=== PATIENT | female | born 2000 | race Hispanic/Latino ===

== ENCOUNTER 2020-06-14 04:14 | Emergency (ER) | payer BC ==
[~2020-06-14] VITALS: Ht 160 cm; Wt 61.7 kg
[2020-06-14] MEDS ORDERED: SODIUM CHLORIDE 0.9% 1000ML 1,000 ML IV STA (04:35)
[2020-06-14] MEDS ORDERED: FAMOTIDINE 20 MG/2 ML VIAL IV ONE ×2 (04:45→05:09)
[2020-06-14] MEDS ORDERED: PROMETHAZINE 25MG/ NS 50ML (IV) IV ONE (04:45)
[2020-06-14] MEDS ORDERED: KETOROLAC TROMETHAMINE 30 MG/ML VIAL IV ONE (04:45)
[2020-06-14] MEDS ORDERED: FAMOTIDINE20 MG PO (04:53)
[2020-06-14] MEDS ORDERED: ZOFRAN4 MG PO (04:53)
[2020-06-14] MEDS ORDERED: MAALOX MAXIMUM355 ML PO (04:53)
[2020-06-14] MEDS ORDERED: ACETAMINOPHEN500 MG PO (04:53)
[2020-06-14] MEDS ORDERED: SODIUM CHLORIDE 0.9% 50ML 50 ML ONE (05:07)
[2020-06-14] MEDS ORDERED: PROMETHAZINE HCL (IM) 25 MG/ML VIAL IM ONE (05:07)
[2020-06-14] MEDS ORDERED: KETOROLAC TROMETHAMINE 30 MG/ML VIAL ONE (05:07)
[2020-06-14] MEDS ORDERED: SODIUM CHLORIDE 0.9% 1000ML 1,000 ML ONE (05:09)
[2020-06-14 05:50] VITALS: BP 139/89
== END 2020-06-14 05:50 | disposition home or self-care (01) ==
LOC: FSED 04:35
DX: R11.2 Nausea with vomiting, unspecified (principal); K52.9 Noninfective gastroenteritis and colitis, unspecified; R10.9 Unspecified abdominal pain; R06.02 Shortness of breath; B34.9 Viral infection, unspecified; R51.9 Headache, unspecified; R01.1 Cardiac murmur, unspecified
CPT/HCPCS: 74176; 80048; 80076; 81003; 81025; 83880; 84484; 85025; 96374; 96376; 99284; J1885; J2550; J7030

== ENCOUNTER 2020-06-22 00:38 | Emergency (ER) | payer BC ==
[~2020-06-22] VITALS: Ht 160 cm; Wt 61.7 kg
[~2020-06-22 00:38] MED LIST: ACETAMINOPHEN500 MG PO; FAMOTIDINE20 MG PO; MAALOX MAXIMUM355 ML PO; ZOFRAN4 MG PO
[2020-06-22] MEDS ORDERED: DONNATAL/LIDOCAINE/MAALOX 30 ML SUSP PO ONE (01:30)
[2020-06-22] MEDS ORDERED: LIDOCAINE VISC 2% SOLN 15 ML UDC PO ONE ×2 (01:30)
[2020-06-22] MEDS ORDERED: PROMETHAZINE HCL (IM) 25 MG/ML VIAL IM ONE ×2 (01:30)
[2020-06-22] MEDS ORDERED: MAGNESIUM/ALUMINUM/SIMETHICONE 30 ML UDC ONE (01:30)
[2020-06-22] MEDS ORDERED: BELLADONNA ALK/PHENOBARBITAL 5 ML UDC PO ONE ×2 (01:30)
[2020-06-22] MEDS ORDERED: MAGNESIUM/ALUMINUM/SIMETHICONE 30 ML UDC PO ONE ×2 (01:30)
[2020-06-22] MEDS ORDERED: LIDOCAINE VISC 2% SOLN 15 ML UDC ONE (01:30)
[2020-06-22] MEDS ORDERED: BELLADONNA ALK/PHENOBARBITAL 5 ML UDC ONE (01:31)
[2020-06-22] MEDS ORDERED: SODIUM CHLORIDE FLUSH 10 ML SYR INJ PRN (02:15)
[2020-06-22] MEDS ORDERED: SODIUM CHLORIDE 0.9% 1000ML 1,000 ML IV SCH (02:15)
[2020-06-22] MEDS ORDERED: IOPAMIDOL 370 MG/ML 200 ML INFUS..BTL INJ ONE (02:20)
[2020-06-22] MEDS ORDERED: SODIUM CHLORIDE 0.9% 50ML 50 ML ONE (02:20)
[2020-06-22] MEDS ORDERED: ONDANSETRON ODT4 MG PO (03:13)
[2020-06-22] MEDS ORDERED: PRILOSEC OTC20 MG PO (03:13)
== END 2020-06-22 03:35 | disposition home or self-care (01) ==
LOC: FSED 01:09
DX: R10.13 Epigastric pain (principal); K20.90 Esophagitis, unspecified without bleeding; K21.9 Gastro-esophageal reflux disease without esophagitis; R94.31 Abnormal electrocardiogram [ECG] [EKG]
CPT/HCPCS: 71046; 71260; 80053; 81025; 82553; 84484; 85025; 99284; J2550; Q9967

== ENCOUNTER → 2022-05-26 | Outpatient (CLI) | payer BC ==
[~2022-05-26] MED LIST changes: +ONDANSETRON ODT4 MG PO; +PRILOSEC OTC20 MG PO
== END ==
LOC: DX 08:55
PROVIDERS: ATTEND Family Medicine
DX: K21.9 Gastro-esophageal reflux disease without esophagitis (principal); K30 Functional dyspepsia
CPT/HCPCS: 74246; 81025

== ENCOUNTER 2022-09-04 22:28 | Emergency (ER) | payer BC ==
[~2022-09-04] VITALS: Ht 160 cm; Wt 64.9 kg
[2022-09-04] MEDS ORDERED: ONDANSETRON HCL INJ 2MG/ML 2ML 2 MG/ML VIAL IV STA (22:59)
[2022-09-04] MEDS ORDERED: FAMOTIDINE 20 MG/2 ML VIAL IV STA (22:59)
[2022-09-04] MEDS ORDERED: SODIUM CHLORIDE 0.9% 1000ML 1,000 ML IV SCH (23:00)
[2022-09-04] MEDS ORDERED: ONDANSETRON HCL INJ 2MG/ML 2ML 2 MG/ML VIAL ONE (23:13)
[2022-09-04] MEDS ORDERED: FAMOTIDINE 20 MG/2 ML VIAL IV ONE (23:14)
[2022-09-04] MEDS ORDERED: SODIUM CHLORIDE 0.9% 1000ML 1,000 ML ONE (23:14)
[2022-09-04] MEDS ORDERED: POTASSIUM CHLORIDE 20 MEQ TAB CR PO STA (23:37)
[2022-09-04] MEDS ORDERED: POTASSIUM CHLORIDE 20 MEQ TAB CR PO ONE (23:42)
[2022-09-05] MEDS ORDERED: ONDANSETRON ODT4 MG PO (00:08)
[2022-09-05] MEDS ORDERED: PANTOPRAZOLE SO40 MG PO (00:08)
[2022-09-05 00:15] VITALS: BP 136/76; PULSE 96; RESP 18; TEMP 98; O2SAT 99
== END 2022-09-05 00:15 | disposition home or self-care (01) ==
LOC: FSED 22:49
DX: R10.13 Epigastric pain (principal); K29.70 Gastritis, unspecified, without bleeding; R11.2 Nausea with vomiting, unspecified; K21.00 Gastro-esophageal reflux disease with esophagitis, without bleeding; E87.6 Hypokalemia
CPT/HCPCS: 71045; 80048; 80076; 81003; 81025; 84484; 85025; 93005; 96374; 96375; 96376; 99284; C9113; J2405; J7030

== ENCOUNTER 2024-04-30 19:36 | Observation (INO) | payer BC ==
[~2024-04-30] VITALS: Ht 160 cm; Wt 63.5 kg
[~2024-04-30 19:36] MED LIST changes: +PANTOPRAZOLE SO40 MG PO
[2024-04-30 19:43] VITALS: TEMP 97.5
[2024-04-30] MEDS ORDERED: LIDOCAINE VISC 2% SOLN 15 ML UDC ONE (19:52)
[2024-04-30] MEDS: LIDOCAINE VISC 2% SOLN 15 ML UDC PO ONE (20:03)
[2024-04-30 20:12] LABS: BASOPHILS % 0.5 % (0.0-1.0); EOSINOPHILS % 0.7 % (0.0-6.0); HEMATOCRIT 39.7 % (34.2-44.1); HEMOGLOBIN 12.3 g/dL (12.0-16.0); LYMPHOCYTES # (AUTO) 1.3 (1.0-3.2); LYMPHOCYTES % 22.9 % (18.0-39.1); MEAN CORPUSCULAR HEMOGLOBIN 27.8 pg (28-32); MEAN CORPUSCULAR VOLUME 89.8 fL (81-99); MONOCYTES # (AUTO) 0.3 (0.2-0.8); MONOCYTES % 5.2 % (4.4-11.3); NEUTROPHILS # (AUTO) 4.1 (2.1-6.9); NEUTROPHILS % 70.7 % (38.7-80.0); PLATELET COUNT 200 x10e3/uL (140-360); RED BLOOD COUNT 4.42 x10e6/uL (3.6-5.1); RED CELL DISTRIBUTION WIDTH 13.2 % (11.7-14.4); WHITE BLOOD COUNT 5.73 x10e3/uL (4.8-10.8)
[2024-04-30 20:14] LABS: BILIRUBIN,URINE SMALL (NEGATIVE); CLARITY,URINE HAZY (CLEAR); COLOR,URINE YELLOW (YELLOW); GLUCOSE, URINE NEGATIVE (NEGATIVE); KETONES,URINE TRACE (NEGATIVE); LEUKOCYTE ESTERASE ,URINE NEGATIVE (NEGATIVE); NITRITE,URINE NEGATIVE (NEGATIVE); PH,URINE 6 (5 - 7); PROTEIN,URINE DIPSTICK NEGATIVE (NEGATIVE); URINE UROBILINOGEN 1 mg/dL (0.2 - 1)
[2024-04-30 20:18] LABS: PREGNANCY TEST, URINE NEGATIVE (NEGATIVE)
[2024-04-30 20:23] LABS: EPITHELIAL CELLS,URINE MANY /LPF
[2024-04-30 20:24] LABS: BACTERIA,URINE MODERATE /HPF; RBC,URINE 0-5 /HPF (0-5); WBC,URINE (MAN) 0-5 /HPF (0-5)
[2024-04-30] MEDS: ONDANSETRON HCL INJ 2MG/ML 2ML 2 MG/ML VIAL IV STA (20:31)
[2024-04-30] MEDS: BELLADONNA ALK/PHENOBARBITAL 5 ML UDC PO SCH (20:32)
[2024-04-30] MEDS: MAGNESIUM/ALUMINUM/SIMETHICONE 30 ML UDC PO ONE (20:32)
[2024-04-30 20:34] LABS: ALBUMIN 4.4 g/dL (3.5-5.0); ALBUMIN/GLOBULIN RATIO 1.6 (0.8-2.0); ANION GAP 16.6 mmol/L (8-16); BILIRUBIN,TOTAL 1.5 mg/dL (0.2-1.2); CALCIUM 9.4 mg/dL (8.4-10.2); CREATININE, SERUM 0.77 mg/dL (0.57-1.11); POTASSIUM 3.6 mmol/L (3.5-5.1); TOTAL PROTEIN 7.1 g/dL (6.5-8.1)
[2024-04-30] MEDS: KETOROLAC TROMETHAMINE 30 MG/ML VIAL IV STA ×2 (21:04→21:05)
[2024-04-30] MEDS ORDERED: Morphine 4mg INJECTION 4 MG/ML INJ IV PRN (23:15)
[2024-05-01] MEDS ORDERED: FAMOTIDINE 20 MG/2 ML VIAL IV ONE ×2 (00:35→11:11)
[2024-05-01] MEDS: FAMOTIDINE 20 MG/2 ML VIAL IV STA (00:39)
[2024-05-01] MEDS: DIPHENHYDRAMINE HCL INJ 50 MG/ML VIAL IV ONE (00:39)
[2024-05-01] MEDS: METHYLPREDNISOLONE SOD SUCC 125 MG/2ML VIAL IV ONE (00:39)
[2024-05-01] MEDS ORDERED: DIPHENHYDRAMINE HCL INJ 50 MG/ML VIAL IV PRN (00:45)
[2024-05-01 05:41] LABS: BASOPHILS % 0.2 % (0.0-1.0); HEMATOCRIT 38.5 % (34.2-44.1); HEMOGLOBIN 12.1 g/dL (12.0-16.0); LYMPHOCYTES # (AUTO) 0.6 (1.0-3.2); LYMPHOCYTES % 13.6 % (18.0-39.1); MEAN CORPUSCULAR HEMOGLOBIN 28.1 pg (28-32); MEAN CORPUSCULAR HGB CONC 31.4 g/dL (31-35); MEAN CORPUSCULAR VOLUME 89.5 fL (81-99); MONOCYTES # (AUTO) 0.1 (0.2-0.8); MONOCYTES % 1.5 % (4.4-11.3); NEUTROPHILS # (AUTO) 3.9 (2.1-6.9); NEUTROPHILS % 84.5 % (38.7-80.0); PLATELET COUNT 181 x10e3/uL (140-360); RED CELL DISTRIBUTION WIDTH 13.2 % (11.7-14.4); WHITE BLOOD COUNT 4.56 x10e3/uL (4.8-10.8)
[2024-05-01] MEDS: METRONIDAZOLE 500MG/NS 100ML 100 ML IV SCH (05:53)
[2024-05-01] MEDS: METHYLPREDNISOLONE SOD SUCC 40 MG/ML VIAL 1ML IV SCH (05:53)
[2024-05-01 06:00] VITALS: PULSE 63; RESP 16
[2024-05-01 06:04] LABS: ALBUMIN 4.1 g/dL (3.5-5.0); ALBUMIN/GLOBULIN RATIO 1.4 (0.8-2.0); BILIRUBIN,TOTAL 0.8 mg/dL (0.2-1.2); CALCIUM 8.9 mg/dL (8.4-10.2); CREATININE, SERUM 0.68 mg/dL (0.57-1.11)
[2024-05-01] MEDS: FAMOTIDINE 20 MG/2 ML VIAL IV SCH (09:00)
[2024-05-01 09:07] VITALS: BP 121/79; PULSE 78; RESP 18; TEMP 97.2; O2SAT 98
[2024-05-01] MEDS ORDERED: SEVOFLURANE INHAL SOLN 250 ML PEN BTL ONE (10:34)
[2024-05-01] MEDS ORDERED: SUCCINYLCHOLINE CHLORIDE 20 MG/ML 10ML VIAL ONE (10:38)
[2024-05-01] MEDS ORDERED: ROCURONIUM BROMIDE 1 ML IV ONE (10:38)
[2024-05-01] MEDS ORDERED: FENTANYL CITRATE/PF 100MCG/2 ML INJ ONE ×2 (10:38→11:23)
[2024-05-01] MEDS ORDERED: PROPOFOL IV EMULSION 10 MG/ML 20 ML VIAL ONE ×2 (10:38→11:12)
[2024-05-01] MEDS ORDERED: LIDOCAINE HCL 2% LOCAL INJ 5 ML SDV VIAL INJ ONE (10:38)
[2024-05-01] MEDS ORDERED: MIDAZOLAM HCL 2 MG/2 ML VIAL ONE (10:38)
[2024-05-01] MEDS ORDERED: DEXAMETHASONE SOD PHOS INJ 4 MG/ML SDV ONE (11:11)
[2024-05-01] MEDS ORDERED: ONDANSETRON HCL INJ 2MG/ML 2ML 2 MG/ML VIAL ONE ×2 (11:11→11:48)
[2024-05-01] MEDS ORDERED: SUGAMMADEX SODIUM 200 MG/2 ML VIAL IV ONE (11:48)
[2024-05-01 12:11] VITALS: BP 121/79; PULSE 78; RESP 18; TEMP 97.2; O2SAT 98
[2024-05-01] MEDS: FENTANYL CITRATE/PF 100MCG/2 ML INJ ONE (13:14)
[2024-05-01 13:36] VITALS: BP 117/76; PULSE 73; RESP 16; TEMP 98.2; O2SAT 100
[2024-05-01] MEDS: KETOROLAC TROMETHAMINE 30 MG/ML VIAL IV PRN (15:46)
[2024-05-01] MEDS: SODIUM CHLORIDE 0.9% 1000ML 1,000 ML IV SCH ×2 (15:48)
[2024-05-01] MEDS: HYDROMORPHONE 1MG/1ML INJ IV PRN (16:53)
[2024-05-01] MEDS: ONDANSETRON HCL INJ 2MG/ML 2ML 2 MG/ML VIAL IV PRN (17:49)
[2024-05-01 20:00] VITALS: BP 117/79; PULSE 96; RESP 18; TEMP 97.9; O2SAT 100
[2024-05-01 21:00] VITALS: BP 117/79; PULSE 96; RESP 18; TEMP 97.9; O2SAT 100
[2024-05-01] MEDS: HYDROCODONE/APAP 7.5MG-325MG 1 EA TAB PO PRN (21:18)
[2024-05-02] VITALS: BP 108/71; PULSE 90; RESP 18; TEMP 97.9; O2SAT 100
[2024-05-02 04:00] VITALS: BP 103/64; PULSE 81; RESP 18; TEMP 97.8; O2SAT 100
[2024-05-02 07:56] VITALS: BP 111/62; PULSE 69; RESP 16; TEMP 98.3; O2SAT 100
[2024-05-02 08:03] VITALS: BP 111/62; PULSE 69; RESP 16; TEMP 98.3; O2SAT 100
[2024-05-02 11:45] VITALS: BP 95/70; PULSE 72; RESP 18; TEMP 97.9; O2SAT 100
[2024-05-02 16:03] VITALS: BP 106/58; PULSE 82; RESP 18; TEMP 98.2; O2SAT 100
== END 2024-05-02 18:31 | disposition home or self-care (01) ==
LOC: ER 19:51 → INTOOBSV 23:09 → ERHOLD 23:09 → MED/SURG 05-01 09:01
PROVIDERS: ADMIT Surgery; ATTEND Surgery
DX: K80.12 Calculus of gallbladder with acute and chronic cholecystitis without obstruction (principal); K21.9 Gastro-esophageal reflux disease without esophagitis; Z79.899 Other long term (current) drug therapy
CPT/HCPCS: 36415 ×2; 47562; 74181; 76705; 80048; 80053 ×2; 81001; 81003; 81025; 83690 ×2; 85025 ×2; 88304; 99284; C1766; G0378 ×3; J0330; J0692 ×2; J1100; J1171; J1200; J1885 ×3; J2003; J2405 ×2; J2470; J2543; J2704; J2919 ×3; J3010; J7030 ×3; J2250